=== PATIENT | female | born 1970 | race American Indian/Alaskan Native ===

== ENCOUNTER 2017-04-20 17:57 | Emergency (ER) | payer SELFPAY ==
[2017-04-20 18:45] VITALS: BP 143/94
[2017-04-20 19:13] LABS: Hematocrit 43.1 % (30.3-42.9); Hemoglobin 14.2 gm/dl (10.1-14.3); Mean Corpuscular HGB Conc 33 % (30-34); Mean Corpuscular Hemoglobin 31 pg (28-32); Mean Corpuscular Volume 94 fl (79-97); Platelet Count 370 K/mm3 (140-440); Red Blood Count 4.58 M/mm3 (3.65-5.03); Red Cell Distribution Width 13.3 % (13.2-15.2); White Blood Count 9.2 K/mm3 (4.5-11.0)
[2017-04-20 19:57] LABS: Anion Gap 14 mmol/L; BUN/Creatinine Ratio 8.57; Blood Urea Nitrogen 6 mg/dL (7-17); Calcium 8.6 mg/dL (8.4-10.2); Carbon Dioxide 27 mmol/L (22-30); Glucose 99 mg/dL (65-100); Potassium 3.8 mmol/L (3.6-5.0); Sodium 140 mmol/L (137-145)
[2017-04-20 20:20] LABS: Bilirubin,Urine NEG (Negative); Blood,Urine MOD (Negative); Ketones,Urine NEG (Negative); Leukocyte Esterase,Urine NEG (Negative); Mucus,Urine FEW /HPF; Nitrite,Urine NEG (Negative); Protein,Urine <15 mg/dL mg/dL (Negative); Urobilinogen,Urine < 2.0 mg/dL (<2.0)
== END 2017-04-20 19:40 | disposition left against medical advice (07) ==
LOC: ED 17:57
DX: N93.8 Other specified abnormal uterine and vaginal bleeding (principal); Z53.21 Procedure and treatment not carried out due to patient leaving prior to being seen by health care provider
CPT/HCPCS: 36415; 80048; 81001; 81025; 85027

== ENCOUNTER 2019-03-18 15:37 | Emergency (ER) | payer OTHER ==
--- NOTE | 2019-03-18 16:15 | Emergency Department Report ---
Blank Doc - Documentation Documentation: 49 y/o female comes in right shoulder pain times 2 days. Increased belching. P ain sharp that is constant. smoker. NKDA .
[2019-03-18 16:16] VITALS: BP 126/84
--- NOTE | 2019-03-18 17:45 | XRay Report ---
PROCEDURE: XR SHOULDER 2+V RT TECHNIQUE: 3 views of the right shoulder HISTORY: right shoulder pain COMPARISONS: FINDINGS: No fracture identified. No dislocation seen. Joint spaces are within normal limits. Adjacent bony and soft tissue structures are unremarkable. IMPRESSION: -3 view shoulder series. This document is electronically signed by Terrell Yeager MD., Mar 18 2019 05:43:35 PM ET
--- NOTE | 2019-03-18 18:24 | Emergency Department Report ---
ED Upper Extremity Inj HPI - General Chief Complaint: Extremity Problem,Nontraumatic Stated Complaint: R SHOULDER/NECK/BACK PAIN/HEADACHE Time Seen by Provider: 03/18/19 17:07 Source: patient Mode of arrival: Ambulatory Limitations: No Limitations - History of Present Illness Initial Comments: Patient is a 49-year-old female presents ED complaining of right upper shoulder pain that has been intermittent for the past week. Patient states the couple of days it's, and a bit worse. Patient states pain is a place her right shoulder region. Patient states that movement aggravates to shoulder pain. She describes been a slight throbbing aching in nature. 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 She denies any injury trauma - Related Data Previous Rx's Medication Instructions Recorded Last Taken Type Hydrocodone Bit/Acetaminophen 1 each PO Q6H PRN #16 tablet 09/08/13 Unknown Rx [Vicodin 5/500] Ibuprofen [Motrin] 600 mg PO Q6H PRN #20 tablet 09/08/13 Unknown Rx Prednisone 60 mg PO QDAY #12 tablet 09/08/13 Unknown Rx methOCARBAMOL [Robaxin] 500 mg PO BID #14 tab 09/08/13 Unknown Rx HYDROcodone/ACETAMINOPHEN [Lortab 2 each PO Q6H PRN #20 tablet 06/29/14 Unknown Rx 5-325 mg Tablet] Cyclobenzaprine [Flexeril 10 MG 10 mg PO TID PRN #15 tablet 03/18/19 Unknown Rx TAB] Ibuprofen [Motrin 600 MG tab] 600 mg PO Q8H PRN #25 tablet 03/18/19 Unknown Rx Allergies Allergy/AdvReac Type Severity Reaction Status Date / Time No Known Allergies Allergy Verified 09/07/13 23:06 ED Review of Systems ROS: Stated complaint: R SHOULDER/NECK/BACK PAIN/HEADACHE Other details as noted in HPI Comment: All other systems reviewed and negative ED Past Medical Hx - Past Medical History Previous Medical History?: No Additional medical history: fibroids - Surgical History Past Surgical History?: Yes Additional Surgical History: csection x 2 - Social History Smoking Status: Current Every Day Smoker Substance Use Type: None - Medications Home Medications: Home Medications Medication Instructions Recorded Confirmed Last Taken Type Hydrocodone Bit/Acetaminophen 1 each PO Q6H PRN #16 tablet 09/08/13 Unknown Rx [Vicodin 5/500] Ibuprofen [Motrin] 600 mg PO Q6H PRN #20 tablet 09/08/13 Unknown Rx Prednisone 60 mg PO QDAY #12 tablet 09/08/13 Unknown Rx methOCARBAMOL [Robaxin] 500 mg PO BID #14 tab 09/08/13 Unknown Rx HYDROcodone/ACETAMINOPHEN [Lortab 2 each PO Q6H PRN #20 tablet 06/29/14 Unknown Rx 5-325 mg Tablet] Cyclobenzaprine [Flexeril 10 MG 10 mg PO TID PRN #15 tablet 03/18/19 Unknown Rx TAB] Ibuprofen [Motrin 600 MG tab] 600 mg PO Q8H PRN #25 tablet 03/18/19 Unknown Rx ED Physical Exam - General Limitations: No Limitations General appearance: alert, in no apparent distress - Head Head exam: Present: atraumatic, normocephalic - Eye Eye exam: Present: normal appearance - ENT ENT exam: Present: mucous membranes moist - Neck Neck exam: Present: normal inspection - Respiratory Respiratory exam: Present: normal lung sounds bilaterally. Absent: respiratory distress - Cardiovascular Cardiovascular Exam: Present: regular rate, normal rhythm. Absent: systolic murmur, diastolic murmur, rubs, gallop - GI/Abdominal GI/Abdominal exam: Present: soft, normal bowel sounds - Extremities Exam Extremities exam: Present: normal inspection - Expanded Upper Extremity Exam Right General: Present: normal inspection Shoulder Exam: Present: normal inspection, tenderness (of the scapular region). Absent: full ROM (Limited range of motion of report states the pain), swelling, abrasion Upper Arm exam: Present: normal inspection, full ROM. Absent: tenderness Elbow exam: Present: normal inspection, full ROM. Absent: tenderness, swelling Forearm Wrist exam: Present: normal inspection, full ROM Hand Wrist exam: Absent: normal inspection, full ROM, deformity Neuro motor exam: Present: wrist extension intact Neurosensory exam: Present: 2-point discrimination Vascular: Present: normal capillary refill, radial pulse. Absent: vascular compromise - Back Exam Back exam: Present: normal inspection - Neurological Exam Neurological exam: Present: alert, oriented X3 - Psychiatric Psychiatric exam: Present: normal affect, normal mood - Skin Skin exam: Present: warm, dry, intact, normal color. Absent: rash ED Course Vital Signs 03/18/19 16:11 Temperature 98.5 F Pulse Rate 92 H Respiratory 16 Rate Blood Pressure 126/84 O2 Sat by Pulse 98 Oximetry ED Medical Decision Making - Radiology Data Radiology results: report reviewed, image reviewed No acute dislocation fracture seen on x-ray Normal study - Medical Decision Making 49-year-old female presents to ED with shoulder joint arthralgia ED course: Patient received Toradol in ED. Vital signs are normal patient is in no acute distress Discussed with patient follow-up with primary care physician. Discussed the patient and take medications as prescribed. Patient has no neurological deficit. Patient is alert and oriented 3 and understands all instructions given. Discussed drowsiness effect of Flexeril makes her drowsy and not to operate machinery while taking flexeril. Discuss orthopedic referral and to follow-up. Critical care attestation.: If time is entered above; I have spent that time in minutes in the direct care of this critically ill patient, excluding procedure time. ED Disposition Clinical Impression: Shoulder arthralgia Disposition: DC-01 TO HOME OR SELFCARE Is pt being admited?: No Does the pt Need Aspirin: No Condition: Stable Instructions: Rotator Cuff Injury (ED), Osteoarthritis (ED), Shoulder Sprain (ED), Arthralgia (ED) Additional Instructions: Make sure to follow up with the primary care physician as discussed. Take all your medications as you've been prescribed. If you have any worsening symptoms or develop new symptoms please return to ED immediately. Prescriptions: Cyclobenzaprine [Flexeril 10 MG TAB] 10 mg PO TID PRN #15 tablet PRN Reason: Muscle Spasm Ibuprofen [Motrin 600 MG tab] 600 mg PO Q8H PRN #25 tablet PRN Reason: Pain Referrals: HEMANTH ALFREDO MD [Primary Care Provider] - 3-5 Days WALDEMAR SALVADOR MD [Staff Physician] - 3-5 Days Forms: Accompanied Note, Work/School Release Form(ED) Time of Disposition: 18:26
[2019-03-18] MEDS ORDERED: TORADOL IM ONE (18:28)
[2019-03-18] MEDS ORDERED: DELTASONE PO ONE (18:28)
== END 2019-03-18 18:40 | disposition home or self-care (01) ==
LOC: ED 15:37
DX: M25.511 Pain in right shoulder (principal)
CPT/HCPCS: 73030; 99283; J1885; J7512

== ENCOUNTER 2019-10-29 22:43 | Emergency (ER) | payer SELFPAY ==
[2019-10-29 22:58] VITALS: BP 106/74
[2019-10-30] MEDS ORDERED: ACETAMINOPHEN 325 MG TAB PO ONE (06:54)
[2019-10-30] MEDS ORDERED: ACETAMINOPHEN 325 MG TAB ONE (06:57)
[2019-10-30] MEDS ORDERED: traMADol 50 MG TAB PO ONE (08:47)
--- NOTE | 2019-10-30 08:59 | Emergency Department Report ---
- General Chief Complaint: Wound/Laceration Stated Complaint: CUT RIGHT HAND ON GLASS BOTTLE Source: patient Mode of arrival: Ambulatory Limitations: No Limitations - History of Present Illness Initial Comments: 49 yo female at 10 pm last night she attempt to recap wine bottle and glass broke in her hand . Laceration to right palm and proximal right thumb. Tetanus up to date. -: Last night (10 pm) Extremity Location: Right: Hand Place: home Patient Tetanus UTD: Yes Context: accidental Associated Symptoms: none Treatments Prior to Arrival: bandage - Related Data Previous Rx's Medication Instructions Recorded Last Taken Type Hydrocodone Bit/Acetaminophen 1 each PO Q6H PRN #16 tablet 09/08/13 Unknown Rx [Vicodin 5/500] Ibuprofen [Motrin] 600 mg PO Q6H PRN #20 tablet 09/08/13 Unknown Rx Prednisone 60 mg PO QDAY #12 tablet 09/08/13 Unknown Rx methOCARBAMOL [Robaxin] 500 mg PO BID #14 tab 09/08/13 Unknown Rx HYDROcodone/ACETAMINOPHEN [Lortab 2 each PO Q6H PRN #20 tablet 06/29/14 Unknown Rx 5-325 mg Tablet] Cyclobenzaprine [Flexeril 10 MG 10 mg PO TID PRN #15 tablet 03/18/19 Unknown Rx TAB] Ibuprofen [Motrin 600 MG tab] 600 mg PO Q8H PRN #25 tablet 03/18/19 Unknown Rx Allergies Allergy/AdvReac Type Severity Reaction Status Date / Time No Known Allergies Allergy Verified 09/07/13 23:06 ED Review of Systems ROS: Stated complaint: CUT RIGHT HAND ON GLASS BOTTLE Other details as noted in HPI Comment: All other systems reviewed and negative Constitutional: no symptoms reported Skin: other (laceration to the right palm and right thumb) ED Past Medical Hx - Past Medical History Additional medical history: fibroids - Surgical History Additional Surgical History: csection x 2 - Social History Smoking Status: Current Every Day Smoker Substance Use Type: None - Medications Home Medications: Home Medications Medication Instructions Recorded Confirmed Last Taken Type Hydrocodone Bit/Acetaminophen 1 each PO Q6H PRN #16 tablet 09/08/13 Unknown Rx [Vicodin 5/500] Ibuprofen [Motrin] 600 mg PO Q6H PRN #20 tablet 09/08/13 Unknown Rx Prednisone 60 mg PO QDAY #12 tablet 09/08/13 Unknown Rx methOCARBAMOL [Robaxin] 500 mg PO BID #14 tab 09/08/13 Unknown Rx HYDROcodone/ACETAMINOPHEN [Lortab 2 each PO Q6H PRN #20 tablet 06/29/14 Unknown Rx 5-325 mg Tablet] Cyclobenzaprine [Flexeril 10 MG 10 mg PO TID PRN #15 tablet 03/18/19 Unknown Rx TAB] Ibuprofen [Motrin 600 MG tab] 600 mg PO Q8H PRN #25 tablet 03/18/19 Unknown Rx ED Physical Exam - General Limitations: No Limitations General appearance: alert, in no apparent distress - Head Head exam: Present: atraumatic - Eye Eye exam: Present: normal appearance - ENT ENT exam: Present: mucous membranes moist - Respiratory Respiratory exam: Present: normal lung sounds bilaterally - Cardiovascular Cardiovascular Exam: Present: regular rate, normal heart sounds - Rectal Rectal exam: Present: deferred - Expanded Upper Extremity Exam Right Hand L/R Front: 1 - Positive: laceration 2 - Positive: laceration (irregular) Neuro motor exam: Present: wrist extension intact, thumb opposition intact, fingers 2-5 abduction intact Vascular: Present: normal capillary refill, radial pulse. Absent: vascular compromise, Pallo, pulse deficit radial art, pulse deficit ulnar art - Skin Skin exam: Present: warm, dry ED Course Vital Signs 10/29/19 22:55 Temperature 98.2 F Pulse Rate 86 Respiratory 18 Rate Blood Pressure 106/74 O2 Sat by Pulse 95 Oximetry ED Medical Decision Making - Radiology Data Radiology results: report reviewed - Medical Decision Making 49 yo female with irregular lacerations to the palm of right hand and palm side of right proximal thumb lacerations are irregular in shape, superficial no active bleeding. Xray done to r/o foreign body. Critical care attestation.: If time is entered above; I have spent that time in minutes in the direct care of this critically ill patient, excluding procedure time. ED Disposition Clinical Impression: Laceration Disposition: DC-01 TO HOME OR SELFCARE Is pt being admited?: No Does the pt Need Aspirin: No Condition: Stable Instructions: Laceration (ED) Additional Instructions: Do not get wound wet for next 24 hrs. After that ok to shower daily but do not soak hand in water for one week. Keep steri-strips in place until they fall off. Follow up with your PCP in 1 week for wound check. Follow up immediately if you develop redness swelling increasing pain or drainage. Take advil or Tylenol for pack as directed by package insert. Referrals: PRIMARY CARE, [Primary Care Provider] - 3-5 Days Time of Disposition: 10:01
--- NOTE | 2019-10-30 09:24 | XRay Report ---
RIGHT HAND 2 VIEW(S) INDICATION / CLINICAL INFORMATION: r/o foreign body COMPARISON: None available. FINDINGS: BONES / JOINT(S): No acute fracture or subluxation. No significant arthritis. SOFT TISSUES: Soft tissue laceration along the radial aspect of the thumb adjacent to the proximal ph alanx. No radiopaque foreign body. ADDITIONAL FINDINGS: None. Signer Name: Jaye Monreal MD Signed: 10/30/2019 9:19 AM Workstation Name: [email or web address]
[2019-10-30] MEDS ORDERED: TETANUS,DIPH,PERTUSS(ACELL) VACCINE 0.5 ML SYRINGE IM ONE ×2 (10:04→10:07)
[2019-10-30] MEDS ORDERED: TETANUS,DIPHTHERIA TOXOID ADULT 0.5 ML INJ IM ONE (10:56)
== END 2019-10-30 10:11 | disposition home or self-care (01) ==
LOC: ED 22:43
DX: S61.411A Laceration without foreign body of right hand, initial encounter (principal); W25.XXXA Contact with sharp glass, initial encounter; Y93.89 Activity, other specified; Y92.89 Other specified places as the place of occurrence of the external cause; Y99.8 Other external cause status
CPT/HCPCS: 90471; 90714; 90715; 96372

== ENCOUNTER 2020-02-15 10:50 | Emergency (ER) | payer OTHER ==
[2020-02-15 11:00] VITALS: BP 129/79
[2020-02-15 13:49] LABS: HCG Qualitative,Urine Negative (Negative)
[2020-02-15 13:53] LABS: Bilirubin,Urine NEG (Negative); Blood,Urine SM (Negative); Color,Urine Yellow (Yellow); Mucus,Urine FEW /HPF; Protein,Urine <15 mg/dL mg/dL (Negative); Urobilinogen,Urine < 2.0 mg/dL (<2.0)
== END 2020-02-15 15:40 | disposition left against medical advice (07) ==
LOC: ED 10:50
DX: M54.5 Low back pain (principal); R10.2 Pelvic and perineal pain
CPT/HCPCS: 81001; 81025